=== PATIENT | female | born 1970 | race Caucasian/White ===

== ENCOUNTER 2020-07-08 10:06 | Emergency (ER) | payer MEDICAID ==
[~2020-07-08] VITALS: Ht 162.6 cm; Wt 72.6 kg
[2020-07-08 10:32] VITALS: Ht 162.6 cm; Wt 72.6 kg
[2020-07-08] MEDS ORDERED: APAP EXTRA STR500 MG PO (12:20)
[2020-07-08] MEDS ORDERED: NAPROSYN500 MG PO (12:20)
[2020-07-08 12:36] VITALS: BP 161/87
== END 2020-07-08 12:36 | disposition home or self-care (01) ==
LOC: ED 10:06
DX: S93.401A Sprain of unspecified ligament of right ankle, initial encounter (principal); X50.1XXA Overexertion from prolonged static or awkward postures, initial encounter; Y93.89 Activity, other specified; Y92.89 Other specified places as the place of occurrence of the external cause; Y99.8 Other external cause status